=== PATIENT | female | born 1935 | race Caucasian/White ===

== ENCOUNTER 2016-10-09 12:58 | Outpatient (CLI) | payer MEDICARE, MEDICAID | END 2016-10-09 12:59 | disposition home or self-care (01) | LOC: BUREKG 12:58 | PROVIDERS: ATTEND Family Medicine | DX: R00.0 Tachycardia, unspecified (principal) | CPT/HCPCS: 93005; 93010 ==

== ENCOUNTER 2017-05-18 04:54 | Outpatient (CLI) | payer MEDICARE, OTHER, MEDICAID ==
[2017-05-18 05:30] LABS: #Basophils 0.1 thou/uL (0.0-0.2); #Eosinphils 0.3 thou/uL (0.0-0.7); #Lymphocytes 1.9 thou/uL (1.20-3.40); #Monocytes 0.6 thou/uL (0.11-0.59); #Neutrophils 5.7 thou/uL (1.40-6.50); %Basophils 0.7 % (0.0-1.0); %Eosinophils 3.1 % (0.0-10.0); %Lymphocytes 22.3 % (21.0-51.0); %Monocytes 7.4 % (0.0-10.0); %Neutrophils 66.5 % (42.0-75.0); Hemoglobin 12.4 g/dL (12.0-16.0); Mean Corpuscular HGB CONC 32.4 g/dL (32.0-36.0); Mean Corpuscular Hemoglobin 31.4 pg (27.0-31.0); Mean Corpuscular Volume 96.9 fl (81.0-99.0); Mean Platelet Volume 5.9 fL (7.4-10.4); Platelet Count 167 thou/uL (130-400); RBC Distribution Width 12.1 % (11.5-14.5); Red Blood Cell (RBC) Count 3.94 mill/uL (4.20-5.40); White Blood Cell (WBC) Count 8.6 thou/uL (4.8-10.8)
[2017-05-18 08:04] LABS: Lymphocytes 28 % (21-51); MDiff Complete? YES; Monocytes 6 % (0-10); Neutrophil 66 % (42-75); PLT Morphology Comment Appears Adequate; RBC Morphology Normal
[2017-05-18 17:48] LABS: Iron 83 ug/dL (50-170); Transferrin, Serum 196 mg/dL (173-360)
== END 2017-05-18 04:55 | disposition home or self-care (01) ==
LOC: BURLABSP 04:54
PROVIDERS: ATTEND Clinical Nurse Specialist Medical-Surgical
DX: E87.2 Acidosis (principal); M06.9 Rheumatoid arthritis, unspecified
CPT/HCPCS: 36415; 82728; 83540; 84466; 85025

== ENCOUNTER 2018-04-17 07:59 | Outpatient (CLI) | payer MEDICARE, MEDICAID ==
--- NOTE | 2018-04-17 19:11 | CT ---
CT THORAX WITHOUT CONTRAST: 04/17/2018 HISTORY: A spiral CT of the chest was performed for evaluation of a possible lung abnormality, type unspecific . The patient is very kyphotic, which distorts the chest somewhat. TECHNIQUE: Axial slices were acquired, then coronal and sagittal reconstructions were done. FINDINGS: No mediastinal mass is seen, within the limitations of a noncontrast study. No gross adenopathy is s een. The tate are not well evaluated without contrast. Arteriosclerotic change is seen in the aorta and, to a minor degree, in the coronary vessels. There is no sign of pericardial effusion. No pulmonary mass of concern is found. There is a small amount of scarring in the right lower lobe, posteriorly. Some of the bronchi leading to this area seem slightly thickened. I cannot exclude a c hronic inflammatory or infectious condition here, but there are no major infiltrates in the region. There are no effusions. Scans into the upper abdomen show no adrenal mass. The visible portions of the liver and spleen show no acute changes. The upper part of the right kidney is shown, which has large renal calculi. IMPRESSION: No definite acute findings. Perhaps mild thickening of some of the bronchi in the right lower lobe, otherwise, the study shows no pressing findings of concern. POS: HOME
== END 2018-04-17 08:00 | disposition home or self-care (01) ==
LOC: BURCT 07:59
PROVIDERS: ATTEND Family Medicine
DX: C34.91 Malignant neoplasm of unspecified part of right bronchus or lung (principal)
CPT/HCPCS: 71250